=== PATIENT | female | born 1990 | race Caucasian/White ===

== ENCOUNTER 2020-03-31 06:23 | Inpatient (IN) | payer OTHER ==
[~2020-03-31] VITALS: Ht 180.3 cm; Wt 93.4 kg
[2020-03-31] MEDS ORDERED: VITAFOL-OB+DHA1 EACH PO (07:02)
--- NOTE | 2020-04-01 08:00 | PR ---
[facility] [address] [place], [place] [address] Signed PP Progress Notes Datetime Report Generated by JAYLEEN: 04/01/2020 07:59 SUBJECTIVE: [id number] Pain: Within Normal Limits Vital Signs: [id number] Vital Signs: Reviewed; Within Normal Limits EXAM: Ongoing Cardiovascular: Not Done Respiratory: Not Done Abdomen/Uterus: Abnormal Lochia: Normal Vulva/Perineum: Not Done Breasts: Not Done Extremities: Normal Incision: Not Applicable Progress: Normal Exam Comments: Fundus firm, NT @ U-2. H/H 9.6/27.9, WBC 12.9, plat 229k IMPRESSION/PLAN/PROCEDURES: [id number] Impression: Normal Progression Plan: Discharge Procedures: None Progress Notes: Doing well. She desires discharge today. Signing Physician: Zeina Echevarria MD Copies: ~ *Electronically Signed* 04/01/20 0759 ZEINA ECHEVARRIA MD PATIENT NAME: HAYDE GARCIAS PROGRESS NOTE DATE OF : 86 PHYSICIAN: ZEINA ECHEVARRIA MD RPT #: [id number] REPORT IS CONFIDENTIAL AND NOT TO BE RELEASED WITHOUT AUTHORIZATION
== END 2020-04-01 14:55 | disposition home or self-care (01) | DRG 807 ==
LOC: FBC 06:23
PROVIDERS: ADMIT Obstetrics & Gynecology; ATTEND Obstetrics & Gynecology
PROC: 10E0XZZ Delivery of Products of Conception, External Approach (ICD-10-PCS; principal; 2020-03-31)
PROC: 0UQMXZZ Repair Vulva, External Approach (ICD-10-PCS; 2020-03-31)
PROC: 10907ZC Drainage of Amniotic Fluid, Therapeutic from Products of Conception, Via Natural or Artificial Opening (ICD-10-PCS; 2020-03-31)
PROC: 00HU33Z Insertion of Infusion Device into Spinal Canal, Percutaneous Approach (ICD-10-PCS; 2020-03-31)
PROC: 3E0R3BZ Introduction of Anesthetic Agent into Spinal Canal, Percutaneous Approach (ICD-10-PCS; 2020-03-31)
DX: O48.0 Post-term pregnancy (principal); Z37.0 Single live birth; Z3A.41 41 weeks gestation of pregnancy; O70.0 First degree perineal laceration during delivery; Z87.891 Personal history of nicotine dependence
CPT/HCPCS: 36415; 85027; A9270; J2001; J2590; J2795; J7121